=== PATIENT | male | born 1940 | race Caucasian/White ===

== ENCOUNTER → 2020-11-02 | Outpatient (CLI) | payer OTHER | LOC: SJCVC 09:22 → SJCVCIMAG 09:22 | PROVIDERS: ATTEND Internal Medicine | DX: R94.31 Abnormal electrocardiogram [ECG] [EKG] (principal); I08.3 Combined rheumatic disorders of mitral, aortic and tricuspid valves; I11.9 Hypertensive heart disease without heart failure; R00.1 Bradycardia, unspecified; I27.20 Pulmonary hypertension, unspecified; E78.5 Hyperlipidemia, unspecified; E03.9 Hypothyroidism, unspecified; F41.9 Anxiety disorder, unspecified; Z79.899 Other long term (current) drug therapy; Z88.0 Allergy status to penicillin ==

== ENCOUNTER → 2020-11-06 | Outpatient (CLI) | payer OTHER | LOC: SJCVC 15:01 | PROVIDERS: ATTEND Internal Medicine Cardiovascular Disease | DX: R94.31 Abnormal electrocardiogram [ECG] [EKG] (principal); I49.5 Sick sinus syndrome; I10 Essential (primary) hypertension; E03.9 Hypothyroidism, unspecified; G47.33 Obstructive sleep apnea (adult) (pediatric); F03.90 Unspecified dementia, unspecified severity, without behavioral disturbance, psychotic disturbance, mood disturbance, and anxiety; E78.5 Hyperlipidemia, unspecified; Z88.0 Allergy status to penicillin; Z79.899 Other long term (current) drug therapy ==

== ENCOUNTER → 2020-11-16 | Outpatient (CLI) | payer OTHER | LOC: CATH 07:58 → SJCVCIMAG 10:38 → CATH 14:59 | PROVIDERS: ATTEND Internal Medicine Cardiovascular Disease | DX: Z01.818 Encounter for other preprocedural examination (principal); R00.1 Bradycardia, unspecified; I10 Essential (primary) hypertension; E78.5 Hyperlipidemia, unspecified; E03.9 Hypothyroidism, unspecified; G47.30 Sleep apnea, unspecified; Z79.899 Other long term (current) drug therapy; Z88.0 Allergy status to penicillin ==

== ENCOUNTER 2020-12-07 09:25 | Observation (INO) | payer OTHER ==
[~2020-12-07] VITALS: Ht 172.7 cm; Wt 79.4 kg
[2020-12-07 10:14] VITALS: BP 147/78
[2020-12-07] MEDS ORDERED: XANAX 0.25 MG0.25 MG PO (10:20)
[2020-12-07] MEDS ORDERED: ARICEPT 5 MG TAB5 MG PO (10:20)
[2020-12-07] MEDS ORDERED: LEXAPRO20 MG PO (10:20)
[2020-12-07] MEDS ORDERED: LEVOTHYROXINE112 MC1 PO (10:21)
[2020-12-07] MEDS ORDERED: HYDROCHLOROTH12.5 M2 PO (10:21)
[2020-12-07] MEDS ORDERED: LOVASTATIN 20 M20 MG PO (10:22)
[2020-12-07 10:23] LABS: ABSOLUTE NEUTROPHILS 2.9 thou/uL (1.4-8.2); BASOPHILS 1.3 % (0.0-2.0); EOSINOPHILS 4.1 % (0.0-3.0); HEMATOCRIT 34.7 % (42.0-52.0); HEMOGLOBIN 11.7 gm/dL (14.0-18.0); LYMPHOCYTES 26.9 % (24.0-44.0); MCH 30.7 pg (26.0-34.0); MCHC 33.7 g/dL (28.0-37.0); MCV 91.1 fL (80.0-100.0); MONOCYTES 12.4 % (1.0-8.0); PLATELET COUNT 210 thou/uL (150-400); POLYS 55.3 % (36.0-66.0); RBC 3.81 mil/uL (4.50-6.00); RDW 13.6 % (10.5-14.5); WBC 5.2 thou/uL (4.0-11.0)
[2020-12-07] MEDS ORDERED: MICARDIS 20MG T20 M1 PO (10:23)
[2020-12-07] MEDS ORDERED: REMERON15 M1 PO (10:23)
[2020-12-07] MEDS ORDERED: SILDENAFIL CIT100 MG PO (10:24)
[2020-12-07] MEDS ORDERED: TRAMADOL 50 MG50 MG PO (10:24)
[2020-12-07] MEDS ORDERED: TRIAMCINOLONE A80 GM TOP (10:25)
[2020-12-07 10:36] LABS: CALCIUM 8.4 mg/dL (8.5-10.1); POTASSIUM 3.8 mmol/L (3.5-5.1)
[2020-12-07 10:41] LABS: ALBUMIN 3.5 g/dL (3.4-5.0); TOTAL BILIRUBIN 0.5 mg/dL (0.2-1.0); TOTAL PROTEIN 7.2 g/dL (6.4-8.2)
[2020-12-07 10:42] LABS: APTT 30.2 Seconds (24.5-32.8); PROTIME 10.9 Seconds (10.5-12.1)
--- NOTE | 2020-12-07 15:16 | NUR ---
PT ARRIVED FROM HEAD UP OPERATOR HELPER AT 1500. PTS LEFT ARM IS IN SLING. PTS PACEMAKER SITE IS CLEAN DRY AND INTACT. PT ADMISSION ASSESSMENT AND UNIT ORIENTATION COMPLETE. PTS AT BEDSIDE. VSS. WILL CONTINUE TO MONITOR PATIENT AND FOLLOW POC.
[2020-12-07 16:30] VITALS: BP 174/93
[2020-12-07 19:57] VITALS: BP 137/90
[2020-12-08 04:20] VITALS: BP 135/91
--- NOTE | 2020-12-08 04:59 | NUR ---
ASSESSMENTS CHARTED, MEDS CHARTED GIVEN. RESTING IN BED DURING SHIFT. UNABLE TO SLEEP WELL DURING NIGHT. PACEMAKER PLACED DURING DAY. INCISION SITE C/D/I. WEARING LEFT UPPER ARM IMMOBILIZER DURING SHIFT. USING URINAL AT BEDSIDE. ON BEDREST TILL MORNING. PLAN OF CARE SHOULD BE TO GO HOME IN THE AM. FALL PRECAUTIONS IN PLACE DURING SHIFT.
[2020-12-08 08:15] VITALS: BP 164/90
[2020-12-08 08:20] VITALS: BP 164/90
[2020-12-08 12:15] VITALS: BP 153/97
[2020-12-08 12:30] VITALS: BP 153/97
[2020-12-08 13:51] VITALS: BP 153/97
--- NOTE | 2020-12-08 14:40 | NUR ---
PT CARE ASSUMED AT 0700. ASSESSMENTS CHARTED. MEDICATIONS CHARTED. RAC IV. LAC IV. ATRIAL PACED, DDD [employer], FUNCTIONING WELL. PACEMAKER INCISION, LT SUBCLAVIAN, C/D/I. PT WEARING A LT ARM IMMOBILIZER. PT DISCHARGED TO HOME. DISCHARGE PAPERWORK SIGNED. TELEMETRY D/C'D. IV D/C'D.
--- NOTE | 2020-12-10 09:18 | P ---
[facility] [place] [address] PROCEDURE REPORT Name: YADIRA WOODS Room #: 218-P [facility] Carmela MRadha.#: [id number] Admission: 12/07/20 Attend Phys: Scooby Baca MD Discharge: 12/08/20 Date of : 44 Report #: [id number] THIS REPORT FOR: cc: Chaim Walker James DO Couchonnal, Luis F. MD ~ DOC #: [id number] Scooby Baca MD DATE OF SERVICE: 12/07/2020 PACEMAKER IMPLANTATION DATE OF SERVICE: 12/07/2020. PREOPERATIVE DIAGNOSIS: Sick sinus syndrome. POSTOPERATIVE DIAGNOSIS: Sick sinus syndrome. PROCEDURE PERFORMED: Dual chamber pacemaker implantation. INDICATIONS: The patient is a 80-year-old with a history of dementia, recently started on Aricept now with sick sinus syndrome, here for dual chamber pacemaker implantation. ANESTHESIA: The patient underwent MAC anesthesia with no anesthesia related complications. DESCRIPTION OF PROCEDURE: The patient underwent informed consent. We discussed the details of the procedure including the risks include but not limited to bleeding, infection, vascular damage, cardiac perforation, pneumothorax. He understood these risks and is willing to proceed. The patient was brought to the EP laboratory in fasting and sedated state, prepped and draped in a sterile fashion and received IV antibiotics prior to initiation of the procedure. He underwent a venogram showing patency of the left axillary vein. Next, I injected lidocaine at the incision site and a pocket was created over the prepectoral fascia. Access was obtained twice in the left axillary vein and sheath positioned using the modified Seldinger technique. Of note, he did have a significant tortuosity at the SVC RA junction. Next, ventricular lead was placed into the right ventricular apex with adequate pacing, sensing thresholds. The atrial lead was somewhat more challenging to implant due to this tortuosity, atrial lead dislodged twice and was repositioned a third time with stable numbers. The leads were sutured to the prepectoral fascia. A pocket irrigated with vancomycin. Pocket closed in three layers, and surgical glue was placed in the outer skin layer. The patient awoke neurologically and hemodynamically intact. No complications. No significant bleeding. The implant of the pacemaker and leads were made by [employer]. The pacemaker was a [facility] [address] [place] [address] PROCEDURE REPORT Name: YADIRA WOODS Room #: 218-P [facility] Carmela Chávez#: [id number] Admission: 12/07/20 Attend Phys: Scooby Baca MD Discharge: 12/08/20 Date of : 44 Report #: [id number] model number [id number], serial #[id number], atrial lead was a 5076, 52 cm, serial #[id number], RV lead was a 5076, serial #[id number]. The atrial lead demonstrated P-wave 2.6 millivolts, pacing impedance of 513 ohms. The pacing threshold 0.75 volts at 0.4 milliseconds. The RV lead demonstrated R waves of 11 millivolts, pacing impedance of 627 ohms with a pacing threshold of 0.4 volts at 0.4 milliseconds. The device was programmed to the AAIR/DDDR 60-130 mode. CONCLUSION: 1. Successful dual-chamber pacemaker implantation. 2. Satisfactory atrial and ventricular pacing and sensing thresholds. Scooby Baca MD [facility] <ELECTRONICALLY SIGNED> By: Scooby Baca MD 12/10/20 0918 [id number] Scooby Baca MD /nt
== END 2020-12-08 14:21 | disposition home or self-care (01) ==
LOC: CATH 09:25 → 2N 15:36
PROVIDERS: ADMIT Internal Medicine Cardiovascular Disease; ATTEND Internal Medicine Cardiovascular Disease
DX: I49.5 Sick sinus syndrome (principal); I10 Essential (primary) hypertension; E78.5 Hyperlipidemia, unspecified; F03.90 Unspecified dementia, unspecified severity, without behavioral disturbance, psychotic disturbance, mood disturbance, and anxiety; Z79.899 Other long term (current) drug therapy
CPT/HCPCS: 62110; 62900; 70005

== ENCOUNTER → 2021-03-26 | Outpatient (CLI) | payer OTHER ==
[~2021-03-26] MED LIST: ARICEPT 5 MG TAB5 MG PO; HYDROCHLOROTH12.5 M2 PO; LEVOTHYROXINE112 MC1 PO; LEXAPRO20 MG PO; LOVASTATIN 20 M20 MG PO; MICARDIS 20MG T20 M1 PO; REMERON15 M1 PO; SILDENAFIL CIT100 MG PO; TRAMADOL 50 MG50 MG PO; TRIAMCINOLONE A80 GM TOP; XANAX 0.25 MG0.25 MG PO
== END ==
LOC: SJCVC 08:59
PROVIDERS: ATTEND Internal Medicine Cardiovascular Disease
DX: I49.5 Sick sinus syndrome (principal); I10 Essential (primary) hypertension; E78.5 Hyperlipidemia, unspecified; E03.9 Hypothyroidism, unspecified; G47.30 Sleep apnea, unspecified; Z95.0 Presence of cardiac pacemaker; Z88.0 Allergy status to penicillin; Z79.899 Other long term (current) drug therapy; Z82.49 Family history of ischemic heart disease and other diseases of the circulatory system